=== PATIENT | female | born 1985 | race American Indian/Alaskan Native ===

== ENCOUNTER 2022-01-14 09:40 | Emergency (ER) | payer SELFPAY ==
[2022-01-14 13:38] LABS: Mucus,Urine FEW /HPF
--- NOTE | 2022-01-14 13:42 | Emergency Department Report ---
ED General Adult HPI - General Chief complaint: Back Pain/Injury Stated complaint: BACK PAIN Source: patient Mode of arrival: Ambulatory Limitations: No Limitations - History of Present Illness Initial comments: Patient presents to the ED complaining of back pain x2 days. States she fell at work while working at the [employer]. States pain is a current 10 out of 10. She is also complaining of dysuria. Denies any fever, chills. nausea or vomiting. Patient states she has been taking aspirin [id number] without any relief. She denies any IV drug use. Denies any abdominal pain or chest pain at present time. Patient is alert and oriented x3. No acute distress noted. Ill appearance noted. - Related Data Previous Rx's Medication Instructions Recorded Last Taken Type Ketorolac [Toradol] 10 mg PO Q6H PRN 5 Days #20 tab 01/14/22 Unknown Rx Sulfamethoxazole/Trimethoprim 1 each PO BID 10 Days #20 tab 01/14/22 Unknown Rx [Bactrim DS TAB] Allergies Allergy/AdvReac Type Severity Reaction Status Date / Time No Known Allergies Allergy Unverified 01/14/22 09:48 ED Review of Systems ROS: Stated complaint: BACK PAIN Other details as noted in HPI Constitutional: denies: chills, fever Eyes: denies: eye pain, eye discharge, vision change ENT: denies: ear pain, throat pain Respiratory: denies: cough, shortness of breath, wheezing Cardiovascular: denies: chest pain, palpitations Endocrine: no symptoms reported Gastrointestinal: denies: abdominal pain, nausea, diarrhea Genitourinary: dysuria. denies: urgency, discharge Musculoskeletal: back pain. denies: joint swelling, arthralgia Skin: denies: rash, lesions Neurological: denies: headache, weakness, paresthesias Psychiatric: denies: anxiety, depression Hematological/Lymphatic: denies: easy bleeding, easy bruising ED Past Medical Hx - Medications Home Medications: Home Medications Medication Instructions Recorded Confirmed Last Taken Type Ketorolac [Toradol] 10 mg PO Q6H PRN 5 Days #20 tab 01/14/22 Unknown Rx Sulfamethoxazole/Trimethoprim 1 each PO BID 10 Days #20 tab 01/14/22 Unknown Rx [Bactrim DS TAB] ED Physical Exam - General Limitations: No Limitations General appearance: alert, in no apparent distress - Head Head exam: Present: atraumatic, normocephalic - Eye Eye exam: Present: normal appearance - ENT ENT exam: Present: mucous membranes moist - Neck Neck exam: Present: normal inspection - Respiratory Respiratory exam: Present: normal lung sounds bilaterally. Absent: respiratory distress - Cardiovascular Cardiovascular Exam: Present: regular rate, normal rhythm. Absent: systolic murmur, diastolic murmur, rubs, gallop - GI/Abdominal GI/Abdominal exam: Present: soft, normal bowel sounds - Extremities Exam Extremities exam: Present: normal inspection - Back Exam Back exam: Present: normal inspection - Neurological Exam Neurological exam: Present: alert, oriented X3 - Psychiatric Psychiatric exam: Present: normal affect, normal mood - Skin Skin exam: Present: warm, dry, intact, normal color. Absent: rash ED Course Vital Signs 01/14/22 09:45 Temperature 98.3 F Pulse Rate 78 Respiratory 18 Rate Blood Pressure 118/69 [Right] O2 Sat by Pulse 100 Oximetry ED Medical Decision Making - Radiology Data [facility] [address] [place] [address] XRay Report Signed Patient: IMTIAZ MCNAIR MR #: [id number] : 1985 Acct:[id number] Age/Sex: 36 / F ADM Date: 01/14/22 Loc: ED Attending Dr: Ordering Physician: DAVIN PIEDRA Date of Service: 01/14/22 Procedure(s): XR spine lumbosacral 2-3V Accession Number(s): [id number] cc: DAVIN PIEDRA Fluoro Time In Minutes: LUMBAR SPINE 2 VIEWS INDICATION / CLINICAL INFORMATION: back pain. COMPARISON: None available. FINDINGS: VERTEBRAE: No acute fracture. No significant malalignment. DISC SPACES / FACET JOINTS:No significant abnormality. PARASPINAL SOFT TISSUES:No significant abnormality. ADDITIONAL FINDINGS: None. IMPRESSION: 1. No acute findings. Signer Name: Tierra Godoy MD Signed: 01/14/2022 1:56 PM Workstation Name: [id number] Transcribed By: DT Dictated By: Gallito Godoy MD Electronically Authenticated By: Gallito Godoy MD Signed Date/Time: 01/14/22 135 DD/ 135 TD/TT: - Medical Decision Making Patient presents to the ED complaining of back pain x2 days. States she fell at work while working at the [employer]. States pain is a current 10 out of 10. She is also complaining of dysuria. Denies any fever, chills. nausea or vomiting. Patient states she has been taking aspirin [id number] without any relief. She denies any IV drug use. Denies any abdominal pain or chest pain at present time. Patient is alert and oriented x3. No acute distress noted. Ill appearance noted. Urinalysis the pertinent for UTI. X-ray showed no abnormality Rechecked the patient is resting quietly , comfortable and feeling better. I discussed the results of diagnostic study, my clinical impression and the plan for further treatment with the patient. Patient agrees with plan and discharge at this present time. All question addressed. I have given the patient instruction regarding a diagnosis ,expectation ,follow- up and return precaution. I explained to the patient that emergent condition may arise and to return to the ED for new worsen and any new persisting condition. I have explained the importance of following up with the primary care physician or referral physician listed below has instructed. The patient verbalized understanding of discharge instruction. Abnormal Lab Results 01/14/22 13:06 Urine Color Yellow Urine Turbidity Cloudy Specific [place] (Man) 1.020 Ur Protein (Man) 1+ Ur Ketones (Man) Negative Ur Nitrite (Man) Negative Ur Reducing Substances Not Reportable Urine Bilirubin (Man) Negative Urine Ictotest Not Reportable Leukocyte Esterase (Man) Large Urine WBC (Auto) 40.0 H Urine RBC (Auto) 8.0 U Epithel Cells (Auto) 35.0 H Urine RBC (Manual) Negative Urine Mucus Few Critical care attestation.: If time is entered above; I have spent that time in minutes in the direct care of this critically ill patient, excluding procedure time. ED Disposition Clinical Impression: Urinary tract infection Qualifiers: Urinary tract infection type: site unspecified Hematuria presence: without hematuria Qualified Code(s): N39.0 - Urinary tract infection, site not specified Back pain Qualifiers: Back pain location: low back pain Chronicity: acute Back pain laterality: bilateral Sciatica presence: without sciatica Qualified Code(s): M54.50 - Low back pain, unspecified Disposition: 01 HOME / SELF CARE / HOMELESS Is pt being admited?: No Does the pt Need Aspirin: No Condition: Stable Instructions: Antibiotic Medicine, Adult, [id number], Urinary Tract Infection, Adult, [id number], Acute Back Pain, Adult Additional Instructions: Take medication as prescribed Return to the ED for any worsening symptom Prescriptions: Sulfamethoxazole/Trimethoprim [Bactrim DS TAB] 1 each PO BID 10 Days #20 tab Ketorolac [Toradol] 10 mg PO Q6H PRN 5 Days #20 tab PRN Reason: Pain Referrals: PRIMARY CARE, [Primary Care Provider] - 3-5 Days [facility] [Provider Group] - 3-5 Days [facility] [Provider Group] - 3-5 Days Forms: Work/School Release Form(ED) Time of Disposition: 14:23
[2022-01-14 13:45] LABS: Color,Urine Yellow (Yellow)
[2022-01-14] MEDS ORDERED: KETOROLAC 30 MG/1 ML INJ IM ONE (13:46)
--- NOTE | 2022-01-14 14:00 | XRay Report ---
LUMBAR SPINE 2 VIEWS INDICATION / CLINICAL INFORMATION: back pain. COMPARISON: None available. FINDINGS: VERTEBRAE: No acute fracture. No significant malalignment. DISC SPACES / FACET JOINTS:No significant abnormality. PARASPINAL SOFT TISSUES:No significant abnormality. ADDITIONAL FINDINGS: None. IMPRESSION: 1. No acute findings. Signer Name: Tierra Godoy MD Signed: 01/14/2022 1:56 PM Workstation Name: [id number]
[2022-01-14 15:01] VITALS: BP 146/88
== END 2022-01-14 14:59 | disposition home or self-care (01) ==
LOC: ED 09:40
DX: N39.0 Urinary tract infection, site not specified (principal); M54.9 Dorsalgia, unspecified
CPT/HCPCS: 72100; 81001; 87086; 96372; 99283; J1885